=== PATIENT | female | born 1960 | race Caucasian/White ===

== ENCOUNTER 2024-04-19 12:52 | Day surgery (SDC) | payer MEDICARE ==
[2024-04-19 13:30] VITALS: TEMP 98.1
[2024-04-19 15:16] VITALS: BP 124/68; PULSE 65; RESP 16
--- NOTE | 2024-04-19 15:51 | US ---
EXAMINATION TYPE: US FNA thyroid first lesion DATE OF EXAM: 04/19/2024 2:58 PM COMPARISON: None available CLINICAL INDICATION: Female, 64 years old with history of E04.1 thyroid nodule, , RADIOLOGIST: Dr. Anglin PROCEDURE: An initial scanning showed showed the TR 3 complex cystic nodule measuring 4.9 x 3.9 x 3.0 cm in the mid left lobe. This is targeted for FNA. The procedure, along with the risks and complications were discussed with the patient. Patient agreed to proceed with the procedure. A consent was signed and placed in patient's chart. Maximum sterile barrier technique was utilized. Timeout was performed by myself. The left side of the neck was sterilely prepped and draped in the usual fashion. 5 milliliters of 1% Lidocaine were utili zed to anesthetize the superficial and deep soft tissues. Following that, under ultrasound guidance, 5 passes were made into the nodule with 5 cc syringe sucti on. Aspirate included 10 mL volume serous sanguinous fluid. After each pass, the sample was placed on a slide and then sent for pathology. Upon conclusion, hemostasis was achieved, and patient was discharged home in satisfactory condition. IMPRESSION: Successful FNA of the 4.9 cm TR3 nodule left thyroid lobe. In addition to FNA, 10 mL volume of fluid was removed. Overall nodule size was smaller at the end of the exam (5.3 x 2.8 x 2.0 cm). Pathology p ending. [facility], , 04/19/2024 3:49 PM
== END 2024-04-19 15:00 | disposition home or self-care (01) ==
LOC: RADPROMAIN 12:52
PROVIDERS: ATTEND Radiology Diagnostic Radiology
DX: E04.1 Nontoxic single thyroid nodule (principal)
CPT/HCPCS: 10005; 88173; 88305